=== PATIENT | female | born 1990 | race African-American/Black ===

== ENCOUNTER 2020-04-19 22:56 | Emergency (ER) | payer MEDICAID ==
[~2020-04-19] VITALS: Ht 165.1 cm; Wt 137.9 kg
[2020-04-19 23:10] VITALS: BP 124/92
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
[2020-04-19] MEDS ORDERED: HYDROcodone/Acetamin 5/325 tab ORAL ONE (23:30)
--- NOTE | 2020-04-20 | NUR ---
ED Nurse Note: Pt to CT
--- NOTE | 2020-04-20 00:45 | NUR ---
ED Nurse Note: Pt back from CT
[2020-04-20 01:00] VITALS: BP 132/90
[2020-04-20] MEDS ORDERED: HYDROCODON-ACE1 EA15 ORAL (01:15)
[2020-04-20] MEDS ORDERED: IBUPROFEN600 M1 ORAL (01:15)
[2020-04-20 01:19] VITALS: BP 124/92
--- NOTE | 2020-04-20 01:19 | NUR ---
ER DISCHARGE NOTE: Patient is cleared to be discharged per ERMD, pt is aox4, on room air, with stable vital signs. pt was given dc and prescription instructions, pt was able to verbalize understanding, pt id band removed. pt is able to ambulate with steady gait. pt took all belongings.
--- NOTE | 2020-04-20 01:28 | Diagnostic Imaging Report ---
EXAM: CT Lumbar Spine Without Intravenous Contrast CLINICAL HISTORY: TRAUMA TECHNIQUE: Axial computed tomography images of the lumbar spine without intravenous contrast. CTDI is 21 mGy and DLP is 942 mGy-cm. One or more of the following dose reduction techniques were used: automated exposure control, adjustment of the mA and/or kV according to patient size, use of iterative reconstruction technique. COMPARISON: No relevant prior studies available. FINDINGS: Vertebrae: No fracture or malalignment. Soft tissues: Incompletely characterized cystic lesion within the cul- de-sac measuring 4.9 cm. IMPRESSION: 1. No fracture or malalignment. 2. Incompletely characterized cystic lesion within the cul-de-sac measuring 4.9 cm.
--- NOTE | 2020-04-20 01:37 | Diagnostic Imaging Report ---
EXAM: CT Cervical Spine Without Intravenous Contrast CLINICAL HISTORY: TRAUMA TECHNIQUE: Axial computed tomography images of the cervical spine without intravenous contrast. CTDI is 14 mGy and DLP is 422 mGy-cm. One or more of the following dose reduction techniques were used: automated exposure control, adjustment of the mA and/or kV according to patient size, use of iterative reconstruction technique. COMPARISON: No relevant prior studies available. FINDINGS: Vertebrae: Unremarkable. No acute fracture. Soft tissues: Unremarkable. IMPRESSION: No fracture within the cervical spine.
== END 2020-04-20 01:20 | disposition home or self-care (01) ==
LOC: EMR 23:14
DX: S16.1XXA Strain of muscle, fascia and tendon at neck level, initial encounter (principal); S39.012A Strain of muscle, fascia and tendon of lower back, initial encounter; V43.62XA Car passenger injured in collision with other type car in traffic accident, initial encounter; Y92.9 Unspecified place or not applicable; E66.9 Obesity, unspecified; Z68.43 Body mass index [BMI] 50.0-59.9, adult
CPT/HCPCS: 72125; 72131; Z7502; 99284

== ENCOUNTER 2020-06-01 03:47 | Emergency (ER) | payer MEDICAID ==
[~2020-06-01] VITALS: Ht 165.1 cm; Wt 140.6 kg
[~2020-06-01 03:47] MED LIST: HYDROCODON-ACE1 EA15 ORAL; IBUPROFEN600 M1 ORAL
[2020-06-01 04:15] VITALS: BP 133/73
[2020-06-01] MEDS ORDERED: Lidocaine 2% Visc 15ml soln ORAL ONE (04:30)
[2020-06-01] MEDS ORDERED: Mylanta II UD 30ml ORAL ONE (04:30)
--- NOTE | 2020-06-01 04:39 | Emergency Room Report ---
History of Present Illness General Chief Complaint: Chest Pain Present Illness HPI Disclaimer: Please note that this report is being documented using DRAGON technology. This can lead to erroneous entry secondary to incorrect interpretation by the dictating instrument. HPI: 29-year-old female no reported past medical history presented for chest pain. She states after eating dinner last night she developed chest pain substernal sharp. No nausea vomiting fever or cough. She started reading online about chest pain and developed anxiety. States her pain started radiating. She denies any pain at this time. No history of cardiac disease or other medical history per patient. 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 Patient History Last Menstrual Period: UNK Now: No : 3 Para: 2 Reviewed Nursing Documentation: PMH: Agreed; PSxH: Agreed Nursing Documentation-PMH Hx Asthma: Yes Review of Systems All Other Systems: negative except mentioned in HPI Physical Exam Vital Signs Date Time Temp Pulse Resp B/P (MAP) Pulse Ox O2 Delivery O2 Flow Rate FiO2 06/01/20 04:02 98.8 87 20 139/87 (104) 99 Room Air Sp02 EP Interpretation: reviewed, normal General Appearance: well appearing, no apparent distress Head: normocephalic, atraumatic Eyes: bilateral eye PERRL, bilateral eye EOMI ENT: hearing grossly normal, moist mucus membranes Neck: full range of motion, supple Respiratory: lungs clear, normal breath sounds, no rhonchi, no respiratory distress, no retraction, no wheezing Cardiovascular #1: normal peripheral pulses, regular rate, rhythm, no murmur Gastrointestinal: non tender, soft, non-distended, no guarding Neurologic: alert, oriented x3, no focal defects Skin: normal color, warm/dry Medical Decision Making Diagnostic Impression: Primary Impression: Atypical chest pain ER Course MDM: Patient presents for chest pain. No acute distress on exam and nontoxic- appearing. [place] diagnosis included but not limited to GERD, anxiety, stress, costochondritis, did consider ACS. EKG did not have any ischemic changes. Clinical course-IV, IV fluids, GI cocktail, basic laboratory studies and x-ray ordered. Chest x-ray reviewed showed no significant abnormalities. EKG showed no ischemic changes. Troponin negative. Laboratory studies unremarkable. Reassessment patient in no acute distress nontoxic-appearing. Low suspicion for serious etiology of her chest pain. Patient discharged home with outpatient follow-up and return precautions. Labs - Laboratory Tests Test 06/01/20 04:10 White Blood Count 9.7 K/UL (4.8-10.8) Red Blood Count 4.43 M/UL (4.20-5.40) Hemoglobin 12.9 G/DL (12.0-16.0) Hematocrit 38.6 % (37.0-47.0) Mean Corpuscular Volume 87 FL (80-99) Mean Corpuscular Hemoglobin 29.0 PG (27.0-31.0) Mean Corpuscular Hemoglobin Concent 33.3 G/DL (32.0-36.0) Red Cell Distribution Width 12.0 % (11.6-14.8) Platelet Count 345 K/UL (150-450) Mean Platelet Volume 8.2 FL (6.5-10.1) Neutrophils (%) (Auto) 61.3 % (45.0-75.0) Lymphocytes (%) (Auto) 29.1 % (20.0-45.0) Monocytes (%) (Auto) 7.4 % (1.0-10.0) Eosinophils (%) (Auto) 1.8 % (0.0-3.0) Basophils (%) (Auto) 0.5 % (0.0-2.0) Sodium Level 136 MMOL/L (136-145) Potassium Level 3.8 MMOL/L (3.5-5.1) Chloride Level 100 MMOL/L (98-107) Carbon Dioxide Level 30 MMOL/L (21-32) Anion Gap 6 mmol/L (5-15) Blood Urea Nitrogen 19 mg/dL (7-18) H Creatinine 1.0 MG/DL (0.55-1.30) Estimated Glomerular Filtration Rate > 60 mL/min (>60) Glucose Level 94 MG/DL (74-106) Calcium Level 9.0 MG/DL (8.5-10.1) Total Bilirubin 0.1 MG/DL (0.2-1.0) L Aspartate Amino Transferase (AST) 11 U/L (15-37) L Alanine Aminotransferase (ALT) 14 U/L (12-78) Alkaline Phosphatase 87 U/L (46-116) Troponin I 0.000 ng/mL (0.000-0.056) Total Protein 8.0 G/DL (6.4-8.2) Albumin 3.7 G/DL (3.4-5.0) Globulin 4.3 g/dL Albumin/Globulin Ratio 0.9 (1.0-2.7) L On reevaluation: Patient remained in no acute distress and nontoxic. Plan-patient discharged home with outpatient follow-up and return precautions EKG Diagnostic Results Rate: normal Rhythm: NSR ST Segments: no acute changes Other Impression Normal sinus rhythm Rhythm Strip Diag. Results EP Interpretation: yes Rate: 71 Rhythm: NSR, no PVC's, no ectopy Chest X-Ray Diagnostic Results Chest X-Ray Diagnostic Results : Chest X-Ray Ordered: Yes # of Views/Limited/Complete: 1 View Indication: Chest Pain EP Interpretation: Yes Interpretation: no consolidation, no effusion, no pneumothorax, no acute cardiopulmonary disease Impression: No acute disease Electronically Signed by: Ti Marks MD Last Vital Signs Date Time Temp Pulse Resp B/P (MAP) Pulse Ox O2 Delivery O2 Flow Rate FiO2 06/01/20 04:15 87 20 Room Air 06/01/20 04:15 98.8 133/73 99 Status: improved Disposition: HOME, SELF-CARE Condition: Stable Referrals: NON PHYSICIAN (PCP) Ti Marks M.D. Jun 01, 2020 04:39
[2020-06-01 05:17] LABS: ANION GAP 6 mmol/L (5-15); BLOOD UREA NITROGEN 19 mg/dL (7-18); CARBON DIOXIDE 30 MMOL/L (21-32); CHLORIDE 100 MMOL/L (98-107); POTASSIUM 3.8 MMOL/L (3.5-5.1); SODIUM 136 MMOL/L (136-145)
[2020-06-01 05:18] LABS: BASOPHILS % (AUTO) 0.5 % (0.0-2.0); EOSINOPHILS % (AUTO) 1.8 % (0.0-3.0); HEMATOCRIT 38.6 % (37.0-47.0); HEMOGLOBIN 12.9 G/DL (12.0-16.0); LYMPHOCYTES % (AUTO) 29.1 % (20.0-45.0); MEAN CORPUSCULAR VOLUME 87 FL (80-99); MONOCYTES % (AUTO) 7.4 % (1.0-10.0); NEUTROPHILS % (AUTO) 61.3 % (45.0-75.0); PLATELET COUNT 345 K/UL (150-450); RED BLOOD COUNT 4.43 M/UL (4.20-5.40); WHITE BLOOD COUNT 9.7 K/UL (4.8-10.8)
[2020-06-01 05:22] LABS: ALANINE AMINOTRANSFERASE 14 U/L (12-78); ALBUMIN 3.7 G/DL (3.4-5.0); ALBUMIN/GLOBULIN RATIO 0.9 (1.0-2.7); ALKALINE PHOSPHATASE 87 U/L (46-116); ASPARTATE AMINO TRANSFERASE 11 U/L (15-37); BILIRUBIN,TOTAL 0.1 MG/DL (0.2-1.0)
[2020-06-01 05:45] VITALS: BP 128/73
--- NOTE | 2020-06-01 14:20 | Diagnostic Imaging Report ---
Indication: Chest pain Technique: One view of the chest Comparison: none Findings: Lungs and pleural spaces are clear. Heart size is normal. Impression: No acute process
== END 2020-06-01 05:45 | disposition home or self-care (01) ==
LOC: EMR 04:08
DX: R07.89 Other chest pain (principal)
CPT/HCPCS: 36415; 71045; 80053; 84484; 85025; 93005; 96360; J7030; Z7502; 99284

== ENCOUNTER 2021-01-03 13:30 | Emergency (ER) | payer MEDICAID ==
[~2021-01-03] VITALS: Ht 165.1 cm; Wt 129.3 kg
[2021-01-03 14:30] VITALS: BP 134/86
--- NOTE | 2021-01-03 16:20 | Emergency Room Report ---
History of Present Illness General Chief Complaint: Abdominal Pain Source: Patient Present Illness HPI 30-year-old female presents to the emergency department complaining of 4 out of 10 severity midline lower pelvic pain with radiation towards her left side and left flank area x1 day. Patient reports history of ruptured ovarian cyst in the past which presented with similar symptoms. Patient reports that she does have intermittent exacerbation of her pain up to 6 out of 10 severity during attempts to have a bowel movement. Patient denies vaginal bleeding or discharge. She denies fevers or chills. She denies nausea vomiting, constipation or diarrhea. She denies suspicion of . Patient denies suspicion of STI. She denies dysuria, hematuria, urinary frequency or urgency. No other aggravating or relieving factors. 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 COVID-19 Screening: Negative COVID-19 COVID-19 Testing Source: PIN CHASER Patient History Past Medical History: see triage record Past Surgical History: none Pertinent Family History: none Now: No Reviewed Nursing Documentation: PMH: Agreed; PSxH: Agreed Nursing Documentation-PMH Past Medical History: No History, Except For Hx Asthma: Yes Review of Systems All Other Systems: negative except mentioned in HPI Physical Exam Vital Signs Date Time Temp Pulse Resp B/P (MAP) Pulse Ox O2 Delivery O2 Flow Rate FiO2 01/03/21 13:41 98.4 97 16 134/86 (102) 96 Room Air Sp02 EP Interpretation: reviewed, normal General Appearance: no apparent distress, alert, GCS 15, non-toxic Head: normocephalic, atraumatic Eyes: bilateral eye normal inspection, bilateral eye PERRL ENT: hearing grossly normal, normal voice Neck: full range of motion Respiratory: lungs clear, normal breath sounds, speaking full sentences Cardiovascular #1: regular rate, rhythm Gastrointestinal: normal bowel sounds, non tender, soft, no peritonitis, non- distended, no guarding Genitourinary: normal inspection, no CVA tenderness Musculoskeletal: back normal, normal range of motion, gait/station normal, non- tender Neurologic: alert, motor strength/tone normal, oriented x3, sensory intact, responsive, speech normal Psychiatric: judgement/insight normal Skin: no rash, normal color Lymphatic: no adenopathy Medical Decision Making PA Attestation Dr. Guevara is my supervising Physician whom patient management has been discussed with. Diagnostic Impression: Primary Impression: UTI (urinary tract infection) Qualified Codes: N30.01 - Acute cystitis with hematuria Additional Impressions: Abdominal pain Qualified Codes: R10.30 - Lower abdominal pain, unspecified Ovarian cyst Qualified Codes: N83.202 - Unspecified ovarian cyst, left side ER Course 30-year-old female presents to the emergency department complaining of 4 out of 10 severity midline lower pelvic pain with radiation towards her left side and left flank area x1 day. Patient reports history of ruptured ovarian cyst in the past which presented with similar symptoms. Patient reports that she does have intermittent exacerbation of her pain up to 6 out of 10 severity during attempts to have a bowel movement. Patient denies vaginal bleeding or discharge. She denies fevers or chills. She denies nausea vomiting, constipation or diarrhea. She denies suspicion of . Patient denies suspicion of STI. She denies dysuria, hematuria, urinary frequency or urgency. No other aggravating or relieving factors. Ddx considered but are not limited to Diverticulitis, acute appendicitis, d iarrhea,UC, PUD, GE, pancreatitis, gallstone, Ovarian cyst, ovarian torsion, ectopic , PID tubo-ovarian abscess Just to name a few. Vital signs: are WNL, pt. is afebrile. H&PE are most consistent with possible UTI vs ovarian cyst. PE does not suggest acute abdomen at this time. ORDERS: -UA: Moderate bacteria with inflammatory markers indicating UTI -URINE HCG: negative --Pelvic ultrasound with transvaginal: Left ovarian cyst with some free fluid. NO torsion. ED INTERVENTIONS: - Pt. declines pain meds or IM Toradol, she requests just RX. -I do not identify an emergent condition at this time. With current presentation, pt. is stable for close outpatient follow up and conservative treatment. D/w pt. to return promptly to ED with worsening or new symptoms.- Pt. verbalizes' understanding and agreement with proposed treatment plan. DISCHARGE: At this time pt. is stable for d/c to home. Will provide printed patient care instructions, and any necessary prescriptions. Care plan and follow up instructions have been discussed with the patient prior to discharge. Labs Test 01/03/21 16:00 Urine Color Yellow Urine Appearance Slightly cloudy Urine pH 6 (4.5-8.0) Urine Specific [place] 1.020 (1.005-1.035) Urine Protein 1+ (NEGATIVE) Urine Glucose (UA) Negative (NEGATIVE) Urine Ketones 1+ (NEGATIVE) Urine Blood Negative (NEGATIVE) Urine Nitrite Negative (NEGATIVE) Urine Bilirubin Negative (NEGATIVE) Urine Urobilinogen 1 MG/DL (0.0-1.0) Urine Leukocyte Esterase 1+ (NEGATIVE) Urine RBC 0-2 /HPF (0 - 2) Urine WBC 5-10 /HPF (0 - 2) Urine Squamous Epithelial Cells Many /LPF (NONE/OCC) Urine Bacteria Moderate /HPF (NONE) Urine HCG, Qualitative Negative (NEGATIVE) CT/MRI/US Diagnostic Results CT/MRI/US Diagnostic Results : Imaging Test Ordered: Pelvic US Impression " IMPRESSION: 1. No acute abnormality. 2. status not available at the time of dictation. 3. No gestational sac seen within the uterus. 4. If this patient is , this could represent normal early , early failure, or ectopic . 5. Prominent bilateral periuterine vascular structures are probably incidental, but could be seen in the clinical diagnosis of pelvic congestion syndrome. 6. If this patient is not , this is an otherwise unremarkable study." --Per official radiology report- Please see report for specific details. Last Vital Signs Date Time Temp Pulse Resp B/P (MAP) Pulse Ox O2 Delivery O2 Flow Rate FiO2 01/03/21 13:41 98.4 97 16 134/86 (102) 96 Room Air Status: improved Disposition: HOME, SELF-CARE Condition: Stable Scripts Cephalexin* (KEFLEX*) 500 Mg Capsule 500 MG ORAL EVERY 12 HOURS for 7 Days, #14 CAP 0 Refills Prov: Sandy Arevalo 01/03/21 Ibuprofen* (MOTRIN*) 600 Mg Tablet 600 MG ORAL THREE TIMES A DAY, #20 TAB Prov: Sandy Arevalo 01/03/21 Hydrocodone/Acetaminophen 5-325* (HYDROCODONE/ACETAMINOPHEN 5-325*) 1 Each Tablet 1 TAB ORAL Q6H PRN for For Pain, #10 TAB 0 Refills Prov: Sandy Arevalo 01/03/21 Referrals: [facility] Patient Instructions: Ovarian Cyst, [id number], Urinary Tract Infection, [id number] Additional Instructions: Take medications as directed. Do not drink alcohol, drive, or operate heavy machinery while taking ([place] 5mg) as this may cause drowsiness. Follow up with a Primary Care Provider in 3-5 days, even if your symptoms have resolved. --Please review list of primary care clinics, if you do not already have a primary care provider Return sooner to ED if new symptoms occur, or current symptoms become worse. - Please note that this Emergency Department Report was dictated using [employer] Gradephotograph retoucher technology software, occasionally this can lead to erroneous entry secondary to interpretation by the dictation equipment. Sandy Arevalo Jan 03, 2021 16:20
[2021-01-03 16:28] LABS: APPEARANCE,URINE SLIGHTLY CLOUDY; BILIRUBIN, URINE NEGATIVE (NEGATIVE); GLUCOSE, URINE (UA) NEGATIVE (NEGATIVE); KETONES,URINE 1+ (NEGATIVE); LEUKOCYTE ESTERASE ,URINE 1+ (NEGATIVE); NITRITE,URINE NEGATIVE (NEGATIVE); PH,URINE 6 (4.5-8.0); PROTEIN,URINE 1+ (NEGATIVE); UROBILINOGEN,URINE 1 MG/DL (0.0-1.0)
[2021-01-03 16:30] LABS: COLOR,URINE YELLOW
[2021-01-03] MEDS ORDERED: IBUPROFEN600 M1 ORAL (16:49)
[2021-01-03] MEDS ORDERED: HYDROCODON-ACE1 EA15 ORAL (16:49)
[2021-01-03] MEDS ORDERED: CEPHALEXIN500 MG ORAL (16:49)
--- NOTE | 2021-01-03 17:08 | NUR ---
ER DISCHARGE NOTE: Patient is cleared to be discharged per ERMD, pt is aox4, on room air, with stable vital signs. pt was given dc and prescription instructions, pt was able to verbalize understanding. pt is able to ambulate with steady gait. pt took all belongings.
--- NOTE | 2021-01-03 17:31 | Diagnostic Imaging Report ---
EXAM: US Pelvis Transabdominal and Transvaginal, Complete and US Duplex Arterial/Venous of the Pelvis, Complete CLINICAL HISTORY: PAIN TECHNIQUE: Real-time complete transabdominal and transvaginal pelvic ultrasound with image documentation. Transvaginal imaging was used for better evaluation of the endometrium and adnexa. Real-time duplex ultrasound scan of the arterial and venous flow of the pelvis with color Doppler flow and spectral waveform analysis. COMPARISON: No relevant prior studies available. FINDINGS: Uterus/cervix: Uterus 6 x 6.3 x 3 cm Endometrium 0.6 cm. Benign incidental nabothian cysts. No myometrial mass. Right ovary: Right ovary 2.6 cm No torsion. Left ovary: Left ovary 3.7 cm No torsion. Free fluid: No free fluid. Bladder: Unremarkable as visualized. Wall is normal thickness for degree of distention. Vasculature: Prominent bilateral periuterine vascular structures are probably incidental, but could be seen in the clinical diagnosis of pelvic congestion syndrome. Other findings: status not available at the time of dictation. No gestational sac seen within the uterus. If this patient is , this could represent normal early , early failure, or ectopic . If this patient is not , this is an otherwise unremarkable study. IMPRESSION: 1. No acute abnormality. 2. status not available at the time of dictation. 3. No gestational sac seen within the uterus. 4. If this patient is , this could represent normal early , early failure, or ectopic . 5. Prominent bilateral periuterine vascular structures are probably incidental, but could be seen in the clinical diagnosis of pelvic congestion syndrome. 6. If this patient is not , this is an otherwise unremarkable study.
== END 2021-01-03 17:35 | disposition home or self-care (01) ==
LOC: EMR 16:50
DX: N30.01 Acute cystitis with hematuria (principal); R10.30 Lower abdominal pain, unspecified; N83.202 Unspecified ovarian cyst, left side
CPT/HCPCS: 76830; 76856; 81003; 81025; 87086; Z7502; 99284